=== PATIENT | female | born 1995 | race Caucasian/White ===

== ENCOUNTER 2017-06-05 15:23 | Emergency (ER) | payer BC ==
[~2017-06-05] VITALS: Ht 167.6 cm; Wt 55.3 kg
[2017-06-05 15:27] VITALS: TEMP 37.2; Ht 167.6 cm; Wt 55.3 kg
[2017-06-05] MEDS ORDERED: ONDANSETRON INJ 2 MG/ML 2 ML VIAL ONE (15:34)
--- NOTE | 2017-06-05 15:34 | EMERGENCY ROOM VISIT NOTE ---
History First contact with patient: 15:30 Chief Complaint: ALLERGIC REACTION Stated Complaint: ALLERGIC REACTION Nursing Triage Summary: pt arrives via EMS reports after eating a burrito started with itchy feeling in throat and nauseated , vomitted X 2 pt reports taking lara 180mg about 1500 pt reports scratchy feeling in throat has decreased a little History of Present Illness The patient is a 22 year old female with a history of cashew allergy, atopic dermatitis who presents to the Emergency Room with complaints of sudden onset oropharyngeal swelling with difficulty breathing and N&V after eating a burrito at 1345. She noticed sudden onset itching in her mouth and swelling of the tongue after she ate the cashew. She also started to have vomiting. After approx a half hour without improvement of symptoms she took an lara and called her parents. Since she only had a "testing" epipen at home without realizing it the parents suggested she call 911. On arrival the symptoms have improved and she no longer complains of any itching in the mouth or swelling in the mouth, denies any SOB or chest pain. She has ongoing nausea and abdominal pain. The pain is diffuse and worse with retching or acute movements. She also notes she has eczematous patches at BL secondary to atopic dermatitis. She had a similar episode to this when she was 12 yo. She ate half of a cashew had acute onset pain and nausea. She notes " I don't remember going to the hospital but I remember it happening." She has an epipen at her parents however not at the dorm. Review of Systems A 10 point review of systems completed and negative aside from above Past Medical/Surgical History NIL Family History FH: Atopy Social History Smoking Status: Never Smoker Smokeless Tobacco Use: No Alcohol Use: none Drug Use: none Marital Status: single Housing Status: lives with friends Occupation Status: [employer] Current/Historical Medications Scheduled Epinephrine (Epipen), 0.3 MG IM UD Prednisone (Prednisone), 1 TAB PO DAILY Scheduled PRN Albuterol (Ventolin Hfa), 2 PUFFS INH Q4H PRN for Rescue Epinephrine (Epipen), 0.3 MG IM UD PRN for Allergic Reaction Fexofenadine Hcl (Lara Allergy), 180 MG PO DAILY PRN for Allergy Symptoms Ondansetron Hcl (Zofran), 4 MG PO TID PRN for Nausea Allergies Cashew Physical Exam Vital Signs Date Time Temp Pulse Resp B/P (MAP) Pulse Ox O2 Delivery O2 Flow Rate FiO2 06/05/17 16:26 75 20 109/71 98 Room Air 06/05/17 15:30 89 06/05/17 15:27 Room Air 99 06/05/17 15:27 37.2 91 18 129/89 99 Room Air Physical Exam General: ambulatory, not in acute distress Skin: no rashes noted however there is eczematous patches on back and flexural surfaces of bilat elbows , no suspicious lesions, no areas of inflammations/ lacerations/ erythema noted CVS: S1/ S2 noted, RRR, no rubs/ murmurs noted, no cyanosis RVS: Clear throughout bilaterally, not in acute respiratory distress, no wheezing/ rales/ crackles noted ENT: no erythema/ injection/ ulcerations noted in the pharynx, no lymphadenopathy Neck: , inspection WNL, full ROM of neck ABD: BSx4, diffusely tender on palpation but a soft abdomen and no rebound, no organomegaly, negative murphys, psoas, Rovsing, CVA tenderness MSK: inspection of all limbs WNL, motor and sensation intact in all limbs, no swelling/ pain on palpation of joints Lymph: No lymphadenopathy palpable Medical Decision & Procedures Laboratory Results 06/05/17 15:30 Red Blood Count 4.56, Mean Corpuscular Volume 85.5, Mean Corpuscular Hemoglobin 29.4, Mean Corpuscular Hemoglobin Concent 34.4, Mean Platelet Volume 9.9, Neutrophils (%) (Auto) 63.5, Lymphocytes (%) (Auto) 26.0, Monocytes (%) (Auto) 7.1, Eosinophils (%) (Auto) 2.8, Basophils (%) (Auto) 0.3, Neutrophils # (Auto) 4.75, Lymphocytes # (Auto) 1.94, Monocytes # (Auto) 0.53, Eosinophils # (Auto) 0.21, Basophils # (Auto) 0.02 06/05/17 15:30 Test 06/05/17 15:30 White Blood Count 7.47 K/uL (4.8-10.8) Red Blood Count 4.56 M/uL (4.2-5.4) Hemoglobin 13.4 g/dL (12.0-16.0) Hematocrit 39.0 % (37-47) Mean Corpuscular Volume 85.5 fL (80-100) Mean Corpuscular Hemoglobin 29.4 pg (25-34) Mean Corpuscular Hemoglobin Concent 34.4 g/dl (32-36) Platelet Count 246 K/uL (130-400) Mean Platelet Volume 9.9 fL (7.4-10.4) Neutrophils (%) (Auto) 63.5 % Lymphocytes (%) (Auto) 26.0 % Monocytes (%) (Auto) 7.1 % Eosinophils (%) (Auto) 2.8 % Basophils (%) (Auto) 0.3 % Neutrophils # (Auto) 4.75 K/uL (1.4-6.5) Lymphocytes # (Auto) 1.94 K/uL (1.2-3.4) Monocytes # (Auto) 0.53 K/uL (0.11-0.59) Eosinophils # (Auto) 0.21 K/uL (0-0.5) Basophils # (Auto) 0.02 K/uL (0-0.2) RDW Standard Deviation 40.6 fL (36.4-46.3) RDW Coefficient of Variation 13.0 % (11.5-14.5) Immature Granulocyte % (Auto) 0.3 % Immature Granulocyte # (Auto) 0.02 K/uL (0.00-0.02) Anion Gap 4.0 mmol/L (3-11) Est Creatinine Clear Calc Drug Dose 103.1 ml/min Estimated GFR () 130.9 Estimated GFR (Non- 112.9 BUN/Creatinine Ratio 18.2 (10-20) Calcium Level 9.3 mg/dl (8.5-10.1) Total Bilirubin 0.8 mg/dl (0.2-1) Aspartate Amino Transf (AST/SGOT) 17 U/L (15-37) Alanine Aminotransferase (ALT/SGPT) 16 U/L (12-78) Alkaline Phosphatase 47 U/L (45-117) Total Protein 7.9 gm/dl (6.4-8.2) Albumin 4.0 gm/dl (3.4-5.0) Globulin 3.9 gm/dl (2.5-4.0) Albumin/Globulin Ratio 1.0 (0.9-2) Medications Administered Medications (Trade) Dose Ordered Sig/[place] Route Start Time Stop Time Status Last Admin Dose Admin Ondansetron HCl (Zofran Inj) 4 mg STK-MED ONCE .ROUTE 06/05/17 15:34 06/05/17 15:35 DC 06/05/17 15:34 4 MG Sodium Chloride 1,000 ml @ 999 mls/hr Q1H1M ONCE IV 06/05/17 16:00 06/05/17 17:00 06/05/17 15:58 999 MLS/HR Ranitidine HCl (zANTac IV) 50 mg NOW STAT IV 06/05/17 15:47 06/05/17 15:49 DC 06/05/17 16:26 50 MG Methylprednisolone Sodium Succinate (Solu-Medrol IV) 125 mg NOW STAT IV 06/05/17 15:47 06/05/17 15:49 DC 06/05/17 15:57 125 MG Potassium Chloride (Klor-Con Tab) 20 meq NOW STAT PO 06/05/17 16:34 06/05/17 16:35 DC 06/05/17 16:52 20 MEQ Medical Decision Differential diagnosis includes but is not limited to allergic reaction, anaphylaxis, urticaria, viral gastroenteritis, cholecystitis, appendicitis, as well as others were entertained. This is a 22 yo f that presents to us after suffering from oropharyngeal swelling and difficulty breathing after ingestion of a cashew. The patient had an identical episode to her allergic reaction to a cashew when she was 12yo. The only concerning feature is the persistent N&V with abdominal tenderness. Could be secondary to the vomiting however CMP and CBC were ordered to assess for a potential abdominal infection/ acute process. No leukocytosis or anemia was appreciated and CMP did not reveal any elevated LFT however there is a mild hypokalemia secondary to her vomiting, repleted while in the ED. The patient was administered ranitidine, methylpred in house for her allergic reaction. She was d/c once nausea resolved with prednisone as well as ranitidine and to continue her Lara. Epipen script was offered to the patient and agreeable. Medication Reconcilliation Current Medication List: was personally reviewed by me Blood Pressure Screening Patient's blood pressure: Normal blood pressure Impression Primary Impression: Allergic reaction Additional Impression: Nausea & vomiting Departure Information Dispostion Home / Self-Care Condition GOOD Prescriptions Epinephrine (EPIPEN) 0.3 Mg/0.3 Ml Inj 0.3 MG IM UD for 1 Day, #1 BOX Prov: Dayana Marshall MD 06/05/17 Ondansetron Hcl (ZOFRAN) 4 Mg Tab 4 MG PO TID Y for Nausea for 10 Days, #30 TAB Prov: Dayana Marshall MD 06/05/17 Prednisone (Prednisone) 50 Mg Tab 1 TAB PO DAILY for 4 Days, #4 TAB Prov: Dayana Marshall MD 06/05/17 Patient Instructions My [facility] Problem Qualifiers Primary Impression: Allergic reaction Encounter type: initial encounter Qualified Codes: T78.40XA - Allergy, unspecified, initial encounter
[2017-06-05] MEDS ORDERED: RANITIDINE HCL 50 MG/100 ML D5W IV STA (15:47)
[2017-06-05] MEDS ORDERED: METHYLPREDNISOLONE 125 MG VIAL IV STA (15:47)
[2017-06-05] MEDS ORDERED: SODIUM CHLORIDE 0.9% 1000ML 1,000 ML IV ONE (16:00)
--- NOTE | 2017-06-05 16:01 | EMERGENCY ROOM VISIT NOTE ---
ED Visit Note First contact with patient: 15:30 HPI: 22F with pmhx of multiple allergies presents with n/v and throat tightness after eating a cashew accidentally. PE: AFVSS, NAD NC/AT Oropharynx clear. No edema, injection, tongue elevation or trismus. No stridor. RRR, no murmurs CTAB Abd soft NT/ND Ext: no edema or erythema Neuro: grossly intact Plan: Mild allergic reaction. Well appearing. Improved in ED after IVF, steroids , Zantac, zofran. Plan for prednisone and pcp f/u. I reviewed the patient's past medical history, medications, and visit nursing notes. I discussed the case with the resident physician, examined the patient, and agree with the findings and plan as documented in the residents note unless otherwise clarified here by me.
[2017-06-05] MEDS ORDERED: FEXO1TAB49 PO (16:10)
[2017-06-05] MEDS ORDERED: PRVHFAIN INH (16:10)
[2017-06-05] MEDS ORDERED: EPP3/2 IM ×2 (16:10→16:47)
[2017-06-05 16:16] LABS: BASO % 0.3 %; BASO ABS # 0.02 K/uL (0-0.2); EOS % 2.8 %; EOS ABS # 0.21 K/uL (0-0.5); HEMOGLOBIN 13.4 g/dL (12.0-16.0); IG# 0.02 K/uL (0.00-0.02); LYMPH ABS # 1.94 K/uL (1.2-3.4); MEAN CELL VOLUME 85.5 fL (80-100); MEAN CORPUSCULAR HEMOGLOBIN 29.4 pg (25-34); MEAN CORPUSCULAR HGB CONC 34.4 g/dl (32-36); MEAN PLATELET VOLUME 9.9 fL (7.4-10.4); MONO % 7.1 %; MONO ABS # 0.53 K/uL (0.11-0.59); NEUT % 63.5 %; NEUT ABS # 4.75 K/uL (1.4-6.5); PLATELET COUNT 246 K/uL (130-400); RED CELL DISTRIBUTION WIDTH SD 40.6 fL (36.4-46.3); WHITE BLOOD COUNT 7.47 K/uL (4.8-10.8)
[2017-06-05 16:33] LABS: CALCIUM 9.3 mg/dl (8.5-10.1); CREATININE 0.76 mg/dl (0.60-1.20); POTASSIUM 3.2 mmol/L (3.5-5.1)
[2017-06-05] MEDS ORDERED: POTASSIUM CHLORIDE 20 MEQ TABCR PO STA (16:34)
[2017-06-05 16:35] LABS: TOTAL PROTEIN 7.9 gm/dl (6.4-8.2)
[2017-06-05] MEDS ORDERED: ONDA4TAB46 PO (16:47)
[2017-06-05] MEDS ORDERED: PRED50TA PO (16:47)
[2017-06-05 17:00] VITALS: BP 112/78; PULSE 78; O2SAT 98
== END 2017-06-05 17:03 | disposition home or self-care (01) ==
LOC: EDBD 15:23 → C.EDC 15:27
DX: T78.40XA Allergy, unspecified, initial encounter (principal); R11.2 Nausea with vomiting, unspecified; X58.XXXA Exposure to other specified factors, initial encounter; Z91.018 Allergy to other foods